=== PATIENT | male | born 1960 | race Caucasian/White ===

== ENCOUNTER → 2022-10-02 | Outpatient (CLI) | payer BC ==
[~2022-10-02] MED LIST: ALBU90OI6 INH; ASPI81CH PO; BENAML20/5 PO; FISH1000 PO; Janumet 50-1,01 EACH PO; LOSA25 PO; OLME20-12. PO; PANT40 PO; ROSU10TA PO; SIMV10 PO; SUCR1 PO; TRAACE
== END | disposition home or self-care (01) ==
LOC: LAB SHORT 08:48 → LAB 08:48
DX: L01.00 Impetigo, unspecified (principal)
CPT/HCPCS: 87070; 87205

== ENCOUNTER → 2024-05-26 | Outpatient (CLI) | payer OTHER | END | disposition home or self-care (01) | LOC: LAB 08:40 → LAB SHORT 08:40 | DX: B35.1 Tinea unguium (principal); L60.2 Onychogryphosis | CPT/HCPCS: 88305; 88312 ==

== ENCOUNTER → 2024-05-26 | Outpatient (CLI) | payer OTHER | LOC: LAB 07:29 → LAB SHORT 07:29 | DX: B35.1 Tinea unguium (principal) | CPT/HCPCS: 87102; 87220 ==